=== PATIENT | female | born 1995 | race Caucasian/White ===

== ENCOUNTER 2016-09-07 23:08 | Emergency (ER) | payer MEDICAID ==
[2016-09-08 01:03] LABS: BASOPHIL % 0.4 % (0-2); PLATELET COUNT 256 x10^3mcL (130-400); RED CELL DISTRIBUTION WIDTH 12.6 % (11.5-14.5)
[2016-09-08 01:08] LABS: CALCIUM 9.2 mg/dL (8.5-10.1); CARBON DIOXIDE 22.1 mmol/L (21-32); CHLORIDE SERUM 100 mmol/L (98-107); CREATININE SERUM 0.7 mg/dL (0.6-1.0); GFR1 > 60 mL/min; GLUCOSE SERUM 96 mg/dL (74-106); POTASSIUM SERUM 3.9 mmol/L (3.5-5.1); SODIUM SERUM 138 mmol/L (136-145)
[2016-09-08 03:23] VITALS: BP 135/81
== END 2016-09-08 03:23 | disposition home or self-care (01) ==
LOC: ED 23:08
PROVIDERS: Emergency Medicine
DX: N93.9 Abnormal uterine and vaginal bleeding, unspecified (principal); R10.2 Pelvic and perineal pain; Z88.1 Allergy status to other antibiotic agents
CPT/HCPCS: J1885

== ENCOUNTER 2016-10-19 21:12 | Emergency (ER) | payer OTHER ==
[~2016-10-19] VITALS: Ht 157.5 cm; Wt 104.3 kg
[2016-10-20 03:06] VITALS: BP 138/78
== END 2016-10-20 03:06 | disposition home or self-care (01) ==
LOC: ED 21:12
DX: K21.9 Gastro-esophageal reflux disease without esophagitis (principal); K80.80 Other cholelithiasis without obstruction; Z88.1 Allergy status to other antibiotic agents
CPT/HCPCS: Q0092

== ENCOUNTER 2017-03-06 14:36 | Emergency (ER) | payer OTHER ==
[2017-03-06 18:22] VITALS: BP 148/95
== END 2017-03-06 18:22 | disposition home or self-care (01) ==
LOC: ED 14:36
DX: K21.9 Gastro-esophageal reflux disease without esophagitis (principal); Z88.1 Allergy status to other antibiotic agents

== ENCOUNTER 2017-11-02 13:02 | Emergency (ER) | payer OTHER ==
[~2017-11-02] VITALS: Ht 157.5 cm; Wt 93.9 kg
[2017-11-02 13:08] VITALS: BP 135/85; Ht 157.5 cm; Wt 93.9 kg
== END 2017-11-02 15:07 | disposition home or self-care (01) ==
LOC: ED 13:02
DX: N12 Tubulo-interstitial nephritis, not specified as acute or chronic (principal); R51 Headache; Z88.1 Allergy status to other antibiotic agents
CPT/HCPCS: J1885; Q0162

== ENCOUNTER 2018-02-09 20:13 | Emergency (ER) | payer MEDICAID ==
[~2018-02-09] VITALS: Ht 157.5 cm; Wt 91.2 kg
[2018-02-09 20:36] VITALS: Ht 157.5 cm; Wt 91.2 kg
[2018-02-09 22:45] LABS: UA SPECIFIC GRAVITY 1.025 (1.005-1.035); microscopic required? YES; urine erythrocyte 2+ (NEGATIVE)
[2018-02-09 23:42] VITALS: BP 134/80
== END 2018-02-09 23:42 | disposition home or self-care (01) ==
LOC: ED 20:13
PROVIDERS: Emergency Medicine
DX: S39.012A Strain of muscle, fascia and tendon of lower back, initial encounter (principal); N39.0 Urinary tract infection, site not specified; X58.XXXA Exposure to other specified factors, initial encounter; Y93.89 Activity, other specified; Y92.89 Other specified places as the place of occurrence of the external cause; Y99.8 Other external cause status; Z88.1 Allergy status to other antibiotic agents

== ENCOUNTER 2018-10-01 00:20 | Emergency (ER) | payer MEDICAID ==
[~2018-10-01] VITALS: Ht 157.5 cm; Wt 90.3 kg
[2018-10-01 01:50] VITALS: BP 132/90
== END 2018-10-01 01:50 | disposition home or self-care (01) ==
LOC: ED 00:20
DX: N89.8 Other specified noninflammatory disorders of vagina (principal); R10.9 Unspecified abdominal pain; Z88.1 Allergy status to other antibiotic agents
CPT/HCPCS: 87491; 87591; J0696; J1885; Q0162

== ENCOUNTER 2018-12-28 20:40 | Emergency (ER) | payer MEDICAID ==
[~2018-12-28] VITALS: Ht 157.5 cm; Wt 92.1 kg
[2018-12-28 20:44] VITALS: Ht 157.5 cm; Wt 92.1 kg
[2018-12-29 01:23] VITALS: BP 138/78
== END 2018-12-29 01:23 | disposition home or self-care (01) ==
LOC: ED 20:40
DX: J32.9 Chronic sinusitis, unspecified (principal)
CPT/HCPCS: J1885

== ENCOUNTER 2019-08-05 20:18 | Emergency (ER) | payer MEDICAID, SELFPAY ==
[~2019-08-05] VITALS: Ht 157.5 cm; Wt 90.7 kg
[2019-08-05 20:31] VITALS: Ht 157.5 cm; Wt 90.7 kg
[2019-08-05 21:32] LABS: BASOPHIL % 0.4 % (0-2); PLATELET COUNT 225 x10^3mcL (130-400); RED CELL DISTRIBUTION WIDTH 12.5 % (11.5-14.5)
[2019-08-05 21:42] LABS: CALCIUM 8.7 mg/dL (8.5-10.1); CARBON DIOXIDE 27.5 mmol/L (21-32); CHLORIDE SERUM 100 mmol/L (98-107); CREATININE SERUM 0.9 mg/dL (0.6-1.0); GFR1 > 60 mL/min; GLUCOSE SERUM 89 mg/dL (74-106); POTASSIUM SERUM 3.7 mmol/L (3.5-5.1); SODIUM SERUM 137 mmol/L (136-145)
[2019-08-05 21:46] LABS: ALBUMIN 4.1 g/dL (3.4-5.0); ALKALINE PHOSPHATASE 108 U/L (46-116); ALT/SGPT 49 U/L (14-59); AST/SGOT 35 U/L (15-37); BILIRUBIN TOTAL 0.3 mg/dL (0.20-1.00); LIPASE 117 IU/L (73-393); TOTAL PROTEIN, SERUM 7.9 g/dL (6.4-8.2)
[2019-08-05 23:04] VITALS: BP 142/90
== END 2019-08-05 23:04 | disposition home or self-care (01) ==
LOC: ED 20:18
PROVIDERS: Emergency Medicine
DX: U07.1 COVID-19 (principal); Z88.1 Allergy status to other antibiotic agents
CPT/HCPCS: 36415; 87804; U0003-CS

== ENCOUNTER 2020-01-14 23:20 | Emergency (ER) | payer OTHER, SELFPAY ==
[~2020-01-14] VITALS: Ht 157.5 cm; Wt 96.6 kg
[2020-01-14 23:22] VITALS: Ht 157.5 cm; Wt 96.6 kg
[2020-01-15 00:57] VITALS: BP 111/74
== END 2020-01-15 00:57 | disposition home or self-care (01) ==
LOC: ED 23:20
DX: R51.9 Headache, unspecified (principal); I10 Essential (primary) hypertension; Z88.1 Allergy status to other antibiotic agents; Z20.828 Contact with and (suspected) exposure to other viral communicable diseases
CPT/HCPCS: U0003

== ENCOUNTER 2020-03-16 22:20 | Emergency (ER) | payer OTHER ==
[~2020-03-16] VITALS: Ht 157.5 cm; Wt 99.8 kg
[2020-03-16 22:33] VITALS: BP 148/77; Ht 157.5 cm; Wt 99.8 kg
== END 2020-03-17 00:45 | disposition home or self-care (01) ==
LOC: ED 22:20
DX: K43.2 Incisional hernia without obstruction or gangrene (principal); I10 Essential (primary) hypertension; Z90.49 Acquired absence of other specified parts of digestive tract; Z88.1 Allergy status to other antibiotic agents